=== PATIENT | male | born 1960 | race Caucasian/White ===

== ENCOUNTER 2018-03-15 07:59 | Day surgery (SDC) | payer MEDICARE ==
[2018-03-14 11:57] VITALS: BMI 41.8
--- NOTE | 2018-03-15 10:02 | RAD ---
LEFT SHOULDER 3 VIEWS: Date: 03/15/18 HISTORY: Left shoulder pain. FINDINGS/IMPRESSION: Degenerative changes are present. No fracture, dislocation, or bony destruction is identified. POS: [facility]
[2018-03-15] MEDS ORDERED: Bupivacaine PF 0.5% 30 ML VIAL ONE (10:06)
[2018-03-15] MEDS ORDERED: Betamet Acet/Betamet Na Ph 30 MG/5 ML VIAL FS SCH (10:15)
[2018-03-15] MEDS ORDERED: Bupivacaine HCl 0.5%/Epinephrine 1:200,000/PF 30 ml Vial IJ SCH (10:15)
--- NOTE | 2018-03-15 13:31 | MRI ---
MRI LEFT SHOULDER WITHOUT CONTRAST: Date: 03/15/18 HISTORY: Injury yesterday. Snover a pop. COMPARISON: Radiographs same date. FINDINGS: Biceps Tendon: The biceps tendon is attenuated at the intertrabecular groove and interstitial split tearing. There i s no normal interarticular biceps tendon appreciated aside from a stub of tendon at the supraglenoid tubercle. Labrum: There is a tear of the posterior inferior labrum. There is also loss of volume and chronic tearing th roughout the superior labrum. Rotator Cuff: There is a high grade bursal surface tear of the supraspinatus tendon from the footprint involving th e anterior 1.0 cm fibers, approximately 75% thickness. This occurs where there is a large subcortical cyst of the footprint. Moderate tendinosis of infraspinatus tendon. There is edema surrounding the s upraspinatus tendon, as well as extending back into the myotendinous junction. This may reflect an ac yurok tear. There is extensive undersurface partial tearing of the subscapularis. Soft Tissues: There are multiple ossified bodies within the subscapularis bursa. These are two definite bodies, the largest measuring 1.4 x 0.5 cm and the other measuring approximately 5.0 x 6.0 mm. Moderate subacromial/subdeltoid bursa effusion. There is a Type II acromion with lateral downsloping and bursal surface fraying about the supraspinat us and infraspinatus tendons. No significant muscle atrophy. IMPRESSION: 1. High grade 75% thickness bursal surface tear of the anterior 1.0 cm fibers of supraspinatus tendo n from the footprint occurring at a large subcortical cyst, likely from chronic interstitial delamina tion and insertion of fluid from tendinosis and delaminating tears. 2. High grade interstitial delamination of the posterior fibers of the supraspinatus tendon extendin g to the infraspinatus tendon which is moderately tendinotic. Interstitial delamination of undersurfa ce partial tearing of the posterior tendon involves approximately 50% of the tendon thickness. 3. Moderate subacromial/subdeltoid bursa effusion. 4. Multiple bodies in subscapularis bursa, largest measuring 1.5 x 0.5 cm. 5. Rupture of the biceps tendon with attenuated fibers of the intertubercular groove of the small st ub of the supraglenoid tubercle. POS: [facility]
== END 2018-03-15 12:53 | disposition home or self-care (01) ==
LOC: SDC 07:59
PROVIDERS: ATTEND Orthopaedic Surgery Hand Surgery
DX: S43.402A Unspecified sprain of left shoulder joint, initial encounter (principal); S46.212A Strain of muscle, fascia and tendon of other parts of biceps, left arm, initial encounter; G56.23 Lesion of ulnar nerve, bilateral upper limbs; G56.03 Carpal tunnel syndrome, bilateral upper limbs; M54.12 Radiculopathy, cervical region; M48.02 Spinal stenosis, cervical region; J44.9 Chronic obstructive pulmonary disease, unspecified; I10 Essential (primary) hypertension; Z79.1 Long term (current) use of non-steroidal anti-inflammatories (NSAID); Z79.84 Long term (current) use of oral hypoglycemic drugs; Z79.899 Other long term (current) drug therapy; X58.XXXA Exposure to other specified factors, initial encounter
CPT/HCPCS: 80048; 85027; 93005; 93010; J0702; S0020

== ENCOUNTER 2018-03-22 06:59 | Day surgery (SDC) | payer MEDICARE ==
[2018-03-15 16:09] VITALS: BMI 41.8
[2018-03-22] MEDS ORDERED: Midazolam HCl 2 mg/2 ml Vial ONE (07:57)
[2018-03-22] MEDS ORDERED: Fentanyl 100 MCG/2 ML VIAL ONE ×3 (07:57→11:43)
[2018-03-22] MEDS ORDERED: CEFAZOLIN 2 GM/50 ML BAG ONE (08:12)
[2018-03-22] MEDS ORDERED: Ondansetron PF 4 MG/2 ML Vial IVP PRN (09:27)
[2018-03-22] MEDS ORDERED: Zolpidem Tartrate 5 MG TAB PO PRN (09:27)
[2018-03-22] MEDS ORDERED: Ropivacaine 0.2% 550 ML 550 ML NERVE BLCK SCH (09:27)
[2018-03-22] MEDS ORDERED: Fentanyl 100 MCG/2 ML VIAL IV PRN (09:27)
[2018-03-22] MEDS ORDERED: Promethazine HCl 25 MG/ML VIAL IM PRN (09:27)
[2018-03-22] MEDS ORDERED: traMADol HCl 50 MG TAB PO PRN ×2 (09:27)
[2018-03-22] MEDS ORDERED: HYDROcodone/Acetaminophen 10/325 mg Tablet PO PRN ×2 (09:27)
[2018-03-22] MEDS ORDERED: Bupivacaine/Epinephrine 0.25% 30 ML VIAL ONE (09:49)
[2018-03-22] MEDS ORDERED: PHENYLEPHRINE-NS 100 MCG/ML 10 ML SYRINGE ONE ×3 (10:30→16:24)
[2018-03-22] MEDS ORDERED: ePHEDrine/0.9% NaCl/PF SYRINGE 50 mg/10 ml ONE ×2 (10:55→16:24)
--- NOTE | 2018-03-22 11:34 | OP ---
DATE OF PROCEDURE: 03/22/2018 PREOPERATIVE DIAGNOSES: POSTOPERATIVE DIAGNOSES: 1. Left high grade near full thickness tear, left leading footprint supraspinatus. 2. Biceps tendon rupture. POSTOPERATIVE DIAGNOSES: 1. Left near full thickness rotator cuff tear, leading supraspinatus. 2. Biceps tendon rupture. 3. Impingement. 4. Partial-thickness tear subscapularis PROCEDURE PERFORMED: 1. Left arthroscopic rotator cuff repair. 2. Subacromial decompression. . STAFF: Romeo Mejia M.D. LINK MACHINE OPERATOR: None. ANESTHESIA: Rani. The patient received general endotracheal intubation, interscalene block. ESTIMATED BLOOD LOSS: 30 mL. TOURNIQUET TIME: None. IMPLANTS: A 5.5 corkscrew and a 4.7 SwiveLock. ANTIBIOTICS: Two grams. COMPLICATIONS: None. HISTORY OF PRESENT ILLNESS: Mr. Reinoso is a 57-year-old male who presented to me after an injury on 03/14/2018 with a pop. He was set up for carpal tunnel release with Dr. Courtney. He had severe pain in his left shoulder, pain overhead with 8-9/10 pain. The patient had MRI showing a high full thickness tear with cystic change and a ruptured biceps. I discussed with the patient the risks and benefits of arthroscopic repair of his left shoulder with possible decompression, possible tenodesis. He understood the risks and benefits of the procedure to include pain, scar, bleeding, infection, damage to vital structures, decreased range of motion or strength, continued pain, failure of repair, loss of life or limb. The patient understood the risks and benefits and elected to proceed. PROCEDURE IN DETAIL: Timeout was performed designating the patient's left upper extremity as the operative site based on sight, consents and markings. After timeout, the patient's left upper extremity was prepped and draped in sterile fashion. The patient was placed in a beach chair position. Posterior working anterior working portal placed intra-articularly. I saw the ruptured biceps, I debrided some of the labrum and saw the subscapularis, which did not have a full thickness tear, but did have a partial thickness tear. The tear was debrided. I did not see any full thickness tear, I did not recognize the biceps. No full thickness cartilage defects of the humerus or glenoid were noted, no loose bodies. I moved subacromially. I could not find the definitive loose bodies that were noted. Visualization within the pouch did not find the loose bodies. I then moved subacromially to find the patient's full thickness tear and there was about a 1 cm tear. They were not within the pouch and were subscapularis, I did not attempt to develop them into the shoulder. I then moved, I debrided the rotator cuff footprint for anchor repair of the supraspinatus. I placed a lateral portal, I debrided and took down the portion of CA ligament and debrided the rotator cuff. I found a spot of the humerus, came down on top of the humerus, made a second stab incision off my lateral portal, anterolateral aspect of the humerus to place the anchor. I then passed 4 stitches and sewed them in a horizontal mattress fashion. I closed the rotator cuff, placed a second lateral row. After I sutured my anchors down took compressive, felt I had a good repair. I did my decompression release and not find loose bodies. I completed my procedure and closed with 3-0 Nylon. The patient may begin passive range of motion. I will see him back in clinic in 2 weeks. KARIME
[2018-03-22] MEDS ORDERED: Ropivacaine 0.5% HCl/PF (150 MG/30 ML VIAL) ONE (15:29)
[2018-03-22] MEDS ORDERED: Ropivacaine 0.2% HCl/PF (40 MG/20 ML VIAL) ONE (15:29)
[2018-03-22] MEDS ORDERED: Dexamethasone 20 MG/5 ML VIAL ONE (16:24)
[2018-03-22] MEDS ORDERED: Glycopyrrolate 0.2 MG/ML 5 ML SYRINGE ONE (16:24)
[2018-03-22] MEDS ORDERED: Lidocaine 1% PF 5 ML VIAL ONE (16:24)
[2018-03-22] MEDS ORDERED: PROPOFOL 200 MG/20 ML VIAL ONE (16:24)
[2018-03-22] MEDS ORDERED: Ondansetron PF 4 MG/2 ML Vial ONE (16:24)
== END 2018-03-22 13:32 | disposition home or self-care (01) ==
LOC: SDC 06:59
PROVIDERS: ATTEND Orthopaedic Surgery
PROC: 0LQ24ZZ Repair Left Shoulder Tendon, Percutaneous Endoscopic Approach (ICD-10-PCS; principal; 2018-03-22)
PROC: 0RHK44Z Insertion of Internal Fixation Device into Left Shoulder Joint, Percutaneous Endoscopic Approach (ICD-10-PCS; 2018-03-22)
PROC: 0RNK4ZZ Release Left Shoulder Joint, Percutaneous Endoscopic Approach (ICD-10-PCS; 2018-03-22)
DX: S46.012A Strain of muscle(s) and tendon(s) of the rotator cuff of left shoulder, initial encounter (principal); S46.212A Strain of muscle, fascia and tendon of other parts of biceps, left arm, initial encounter; M75.42 Impingement syndrome of left shoulder; Z87.891 Personal history of nicotine dependence; Z79.1 Long term (current) use of non-steroidal anti-inflammatories (NSAID); Z79.82 Long term (current) use of aspirin; Z79.84 Long term (current) use of oral hypoglycemic drugs; Z79.899 Other long term (current) drug therapy; X50.0XXA Overexertion from strenuous movement or load, initial encounter
CPT/HCPCS: 29826; 29827; 96374; A4306; C1713; J1100; J2001; J2250; J2405; J2704; J2795; J3010

== ENCOUNTER 2018-08-23 11:14 | Day surgery (SDC) | payer MEDICARE ==
[2018-08-22 15:03] VITALS: BMI 41.3
--- NOTE | 2018-08-23 12:47 | RAD ---
CHEST TWO VIEWS: History: Pre op. FINDINGS: The heart size is upper limits of normal. Mediastinal structures are unremarkable. The lungs are marlon r of infiltrates. There are arthritic changes of the spine. IMPRESSION: Borderline heart size. POS: [facility]
[2018-08-23 12:55] LABS: #Basophils 0.1 thou/uL (0.0-0.2); #Eosinphils 0.2 thou/uL (0.0-0.7); #Monocytes 0.6 thou/uL (0.11-0.59); #Neutrophils 3.6 thou/uL (1.40-6.50); %Basophils 1.4 % (0.0-1.0); %Eosinophils 3.6 % (0.0-10.0); %Monocytes 8.5 % (0.0-10.0); %Neutrophils 55.5 % (42.0-75.0); Hemoglobin 13.2 g/dL (14.0-18.0); Mean Corpuscular HGB CONC 32.4 g/dL (32.0-36.0); Mean Corpuscular Volume 89.5 fL (78.0-98.0); Platelet Count 232 thou/uL (130-400); RBC Distribution Width 12.4 % (11.5-14.5); Red Blood Cell (RBC) Count 4.56 mill/uL (4.70-6.10); White Blood Cell (WBC) Count 6.5 thou/uL (4.8-10.8)
[2018-08-23 13:05] LABS: RBC/HPF None Seen HPF (0-3); WBC/HPF 0-3 HPF (0-3)
[2018-08-23 13:06] LABS: Bacteria/HPF None Seen HPF (None Seen); Hyaline Casts/LPF NONE SEEN LPF (0-3 Hyaline); Squamous Epithelial 0-3 HPF (0-3)
[2018-08-23 13:25] LABS: Anion Gap 11 mmol/L (10-20); BUN (Urea Nitrogen) 17 mg/dL (8.4-25.7); Calc. Creatinine Clearance 157 mL/min (70-130); Calcium 9.6 mg/dL (7.8-10.44); Carbon Dioxide 29 mmol/L (22-29); Chloride 103 mmol/L (98-107); Estimated GFR-MDRD Greater than 90; Glucose 168 mg/dL (70-105); Potassium 4.3 mmol/L (3.5-5.1); Sodium 139 mmol/L (136-145)
[2018-08-23] MEDS ORDERED: Sodium Chloride 0.9% 0 ML ONE (14:47)
[2018-08-23] MEDS ORDERED: Bacitracin Zinc Ointment 30 gm TUBE ONE (14:47)
[2018-08-23] MEDS ORDERED: SUGAMMADEX SODIUM 200 MG/2 ML VIAL ONE (14:58)
[2018-08-23] MEDS ORDERED: Fentanyl 100 MCG/2 ML VIAL ONE (14:58)
[2018-08-23] MEDS ORDERED: PROPOFOL 200 MG/20 ML VIAL ONE (15:28)
[2018-08-23] MEDS ORDERED: Ondansetron PF 4 MG/2 ML Vial ONE (15:28)
[2018-08-23] MEDS ORDERED: Ketorolac Tromethamine 30 MG/ML VIAL ONE (15:28)
[2018-08-23] MEDS ORDERED: ePHEDrine 50 MG/ML VIAL ONE (15:28)
[2018-08-23] MEDS ORDERED: Lidocaine 1% PF 5 ML VIAL ONE (15:28)
[2018-08-23] MEDS ORDERED: PHENYLEPHRINE-NS 100 MCG/ML 10 ML SYRINGE ONE (15:28)
[2018-08-23] MEDS ORDERED: Succinylcholine Chloride 20 MG/ML 10 ml SYRINGE FS ONE (15:28)
[2018-08-23] MEDS ORDERED: Bupivacaine PF 0.5% 30 ML VIAL ONE ×2 (15:39→16:07)
[2018-08-23] MEDS ORDERED: Thrombin 5000 UNITS/5 ML VIAL ONE ×2 (15:47→16:09)
--- NOTE | 2018-08-23 23:31 | OP ---
DATE OF PROCEDURE: 08/23/2018 PREOPERATIVE DIAGNOSIS: Left large olecranon bursitis with previous ulnar nerve dysfunction. POSTOPERATIVE DIAGNOSIS: Left large olecranon bursitis with previous ulnar nerve dysfunction. PROCEDURE PERFORMED: Excision of radical olecranon bursa. Removal of 8.5 x 5.0 cm olecranon mass with straw colored hemorrhagic blood inside with almost a 4 mm thick bursa cavity at some points. BLOOD LOSS: 20 mL. TOURNIQUET TIME: 20 minutes. INDICATION: Pain in olecranon bursal region with ulnar nerve neuropathy, scheduled for ulnar nerve procedure in the next 6 weeks, but felt this was painful. DESCRIPTION OF PROCEDURE: After successful general LMA technique, the limb prepped and draped. The patient then had the time-out accomplished, we had placed the sterile tourniquet on the arm and the limb was exsanguinated and then tourniquet inflated to 250 mmHg pressure. It was well padded. We then placed the arm over his head with appropriate pack of towels to stabilize it, began a zigzag incision that was midline and zagged medially slightly by three 3-4 mm to avoid the olecranon tip and went back to the midline distally. This was carried through skin, subcutaneous tissue to identify the mass and then began to dissect distally and radially and distally ulnarly in a 360 degree arc until we came to the area over the triceps. We spared the triceps tendon and all excision of the underlying bursal edema. The patient then had the mass completely removed, protecting the ulnar nerves, that could be palpated. We then placed thrombin-soaked Gelfoam immediately on the wound and began to close. Hemostasis was excellent. We changed out the thrombin-soaked Gelfoam and closed the wound with subcutaneous running 3-0 Monocryl and the skin with 3-0 nylon interrupted mattress pattern. The patient left the operating room after this, put out in a long-arm splint and pink digits. No evidence of complication. Job ID: [id number]
== END 2018-08-23 18:30 | disposition home or self-care (01) ==
LOC: SDC 11:14
PROVIDERS: ATTEND Orthopaedic Surgery Hand Surgery
PROC: 0MB40ZZ Excision of Left Elbow Bursa and Ligament, Open Approach (ICD-10-PCS; principal; 2018-08-23)
DX: M70.22 Olecranon bursitis, left elbow (principal); G56.23 Lesion of ulnar nerve, bilateral upper limbs; G56.03 Carpal tunnel syndrome, bilateral upper limbs; M25.839 Other specified joint disorders, unspecified wrist; E11.9 Type 2 diabetes mellitus without complications; Z87.891 Personal history of nicotine dependence; Z79.84 Long term (current) use of oral hypoglycemic drugs; Z79.1 Long term (current) use of non-steroidal anti-inflammatories (NSAID); Z79.899 Other long term (current) drug therapy; Z98.890 Other specified postprocedural states
CPT/HCPCS: 36415; 71046; 80048; 81015; 85025; 88304; 93005; 93010; J0690; J1885; J2001; J2405; J2704; J3010; J3490; S0020

== ENCOUNTER 2018-09-12 14:44 | Inpatient (IN) | payer MEDICARE ==
[~2018-09-12 14:44] MED LIST: Ketorolac Tromethamine 30 MG/ML VIAL ONE; Lidocaine 1% PF 5 ML VIAL ONE; Ondansetron PF 4 MG/2 ML Vial ONE; PHENYLEPHRINE-NS 100 MCG/ML 10 ML SYRINGE ONE; PROPOFOL 200 MG/20 ML VIAL ONE; ePHEDrine 50 MG/ML VIAL ONE
[2018-09-12 17:03] LABS: #Basophils 0.1 thou/uL (0.0-0.2); #Eosinphils 0.2 thou/uL (0.0-0.7); #Lymphocytes 1.4 thou/uL (1.20-3.40); #Monocytes 0.7 thou/uL (0.11-0.59); #Neutrophils 3.9 thou/uL (1.40-6.50); %Basophils 1.2 % (0.0-1.0); %Eosinophils 3.5 % (0.0-10.0); %Monocytes 10.6 % (0.0-10.0); %Neutrophils 62.8 % (42.0-75.0); Hemoglobin 11.8 g/dL (14.0-18.0); Mean Corpuscular HGB CONC 33.3 g/dL (32.0-36.0); Mean Corpuscular Hemoglobin 29.9 pg (27.0-31.0); Mean Corpuscular Volume 89.7 fL (78.0-98.0); Mean Platelet Volume 7.7 fL (7.4-10.4); Platelet Count 236 thou/uL (130-400); RBC Distribution Width 12.3 % (11.5-14.5); Red Blood Cell (RBC) Count 3.94 mill/uL (4.70-6.10); White Blood Cell (WBC) Count 6.2 thou/uL (4.8-10.8)
[2018-09-12] MEDS ORDERED: Bacitracin Zinc Ointment 30 gm TUBE ONE (19:49)
[2018-09-12] MEDS ORDERED: Sodium Chloride 0.9% 30 ML ONE (19:49)
[2018-09-12] MEDS ORDERED: Bupivacaine PF 0.5% 30 ML VIAL ONE (19:49)
[2018-09-12] MEDS ORDERED: Sodium Chloride 0.9% 20 ML ONE (19:53)
[2018-09-12] MEDS ORDERED: Fentanyl 100 MCG/2 ML VIAL ONE (20:06)
[2018-09-12] MEDS ORDERED: Promethazine HCl 25 MG/ML VIAL SLOW IVP PRN (21:35)
[2018-09-12] MEDS ORDERED: PACU-Morphine 4MG/ML VIAL SLOW IVP PRN (21:35)
[2018-09-12] MEDS ORDERED: Promethazine HCl 25 MG/ML VIAL IM PRN ×2 (21:35→22:00)
[2018-09-12] MEDS ORDERED: Ondansetron HCl/PF 4 MG/2 ML Vial IVP PRN (21:35)
[2018-09-12] MEDS ORDERED: HYDROmorphone 2 MG/ML VIAL SLOW IVP PRN (21:35)
[2018-09-12] MEDS ORDERED: Morphine 4 MG/ML VIAL SLOW IVP PRN (22:00)
[2018-09-12] MEDS ORDERED: traMADol HCl 50 MG TAB PO PRN (22:00)
[2018-09-12] MEDS ORDERED: Morphine 2 MG/ML SYRINGE IVP PRN (22:00)
[2018-09-12] MEDS ORDERED: Communication Order-Pharmacy FS SCH (22:00)
[2018-09-12] MEDS ORDERED: Fentanyl 100 MCG/2 ML VIAL SLOW IVP PRN (22:00)
[2018-09-12] MEDS ORDERED: Meperidine HCl/PF 25 MG/ML VIAL IM PRN (22:10)
[2018-09-12 23:08] VITALS: BMI 42.5
[2018-09-12] MEDS ORDERED: Albuterol Sulfate 2.5 mg/3 ml Neb NEB PRN (23:55)
[2018-09-12] MEDS ORDERED: Polyethylene Glycol 3350 17 GM Packet PO PRN (23:56)
[2018-09-13] MEDS ORDERED: Dextrose 5% in Water 1,000 ML IV PRN (00:07)
[2018-09-13] MEDS ORDERED: Dextrose 50% Abboject 50 ML SYRINGE IVP PRN (00:07)
[2018-09-13] MEDS: Aspirin 81 mg Enteric Coated Tablet PO SCH ×2 (00:40→08:38)
[2018-09-13] MEDS: Insulin Regular 300 UNITS/3 ML VIAL SC PRN ×5 (00:41→21:09)
[2018-09-13] MEDS: Vancomycin HCl 1.5 GM in Sodium Chloride 0.9% 250 ML 300 ML IVPB SCH ×2 (01:43→14:02)
[2018-09-13] MEDS: HYDROcodone/Acetaminophen 5/325 mg Tablet PO PRN (05:14)
[2018-09-13] MEDS: metFORMIN 500 MG TAB PO SCH (08:37)
[2018-09-13] MEDS: Docusate 100 MG CAP PO SCH (08:37)
[2018-09-13] MEDS: Simethicone Chewable 80 MG TAB PO SCH (08:38)
[2018-09-13] MEDS: Furosemide 40 MG TAB PO SCH (08:38)
[2018-09-13] MEDS: Pravastatin Sodium 20 MG TAB PO SCH (08:42)
[2018-09-13] MEDS ORDERED: Aspirin 81 mg Enteric Coated Tablet PO SCH (09:00)
[2018-09-13] MEDS ORDERED: TETANUS AND DIPHTHERIA TOX/PF 0.5 ML DISP.SYRIN IM SCH (09:00)
[2018-09-13] MEDS: HYDROcodone/Acetaminophen 10/325 mg Tablet PO PRN ×3 (13:01→22:06)
[2018-09-13] MEDS ORDERED: Sodium Chloride 0.9% 10 ML ONE (15:21)
[2018-09-13] MEDS: Meloxicam 15 MG TAB PO SCH (21:04)
[2018-09-13] MEDS: Amlodipine 10 MG TAB PO SCH (21:04)
[2018-09-13] MEDS: Multivit, Therapeutic 1 TAB PO SCH (21:05)
[2018-09-14] MEDS: Vancomycin HCl 1.5 GM in Sodium Chloride 0.9% 250 ML 300 ML IVPB SCH ×3 (03:13→21:10)
[2018-09-14] MEDS: Insulin Regular 300 UNITS/3 ML VIAL SC PRN ×4 (06:16→21:04)
[2018-09-14] MEDS: metFORMIN 500 MG TAB PO SCH (08:19)
[2018-09-14] MEDS: Simethicone Chewable 80 MG TAB PO SCH (08:20)
[2018-09-14] MEDS: Docusate 100 MG CAP PO SCH (08:20)
[2018-09-14] MEDS: Aspirin 81 mg Enteric Coated Tablet PO SCH (08:20)
[2018-09-14] MEDS: Furosemide 40 MG TAB PO SCH (08:22)
[2018-09-14] MEDS: HYDROcodone/Acetaminophen 10/325 mg Tablet PO PRN ×4 (08:48→20:53)
[2018-09-14] MEDS: Pravastatin Sodium 20 MG TAB PO SCH (08:51)
[2018-09-14 13:42] LABS: Vancomycin, Trough 9.6 ug/mL
[2018-09-14] MEDS: Amlodipine 10 MG TAB PO SCH (20:46)
[2018-09-14] MEDS: Meloxicam 15 MG TAB PO SCH (20:46)
[2018-09-14] MEDS: Multivit, Therapeutic 1 TAB PO SCH (20:46)
[2018-09-15] MEDS: Insulin Regular 300 UNITS/3 ML VIAL SC PRN ×3 (06:01→22:18)
[2018-09-15] MEDS: Vancomycin HCl 1.5 GM in Sodium Chloride 0.9% 250 ML 300 ML IVPB SCH ×3 (06:02→22:08)
[2018-09-15] MEDS: HYDROcodone/Acetaminophen 10/325 mg Tablet PO PRN ×2 (06:05→20:25)
[2018-09-15] MEDS: Aspirin 81 mg Enteric Coated Tablet PO SCH (08:44)
[2018-09-15] MEDS: Furosemide 40 MG TAB PO SCH (08:44)
[2018-09-15] MEDS: metFORMIN 500 MG TAB PO SCH (08:44)
[2018-09-15] MEDS: Simethicone Chewable 80 MG TAB PO SCH (08:44)
[2018-09-15] MEDS: Docusate 100 MG CAP PO SCH (08:44)
[2018-09-15] MEDS: Pravastatin Sodium 20 MG TAB PO SCH (08:45)
[2018-09-15] MEDS: HYDROcodone/Acetaminophen 5/325 mg Tablet PO PRN (13:41)
[2018-09-15 14:06] LABS: Vancomycin, Trough 16.8 ug/mL
[2018-09-15] MEDS: Amlodipine 10 MG TAB PO SCH (20:24)
[2018-09-15] MEDS: Multivit, Therapeutic 1 TAB PO SCH (20:24)
[2018-09-15] MEDS: Meloxicam 15 MG TAB PO SCH (20:24)
--- NOTE | 2018-09-15 20:30 | CON ---
DATE OF CONSULTATION: 09/15/2018 REASON FOR CONSULTATION: A 58-year-old with olecranon bursitis. HISTORY OF PRESENT ILLNESS: Mr. Reinoso has type 2 diabetes and back and shoulder surgeries as well as olecranon bursitis of the left elbow. This has failed conservative management. The patient was admitted and had a surgical debridement by Dr. Courtney. The operative report was reviewed. There was described mass which was completely removed. The triceps tendon was spared. No comment is made regarding the possibility of bone involvement. Imaging study includes a chest x-ray, but no imaging study of the elbow per se. Chest x-ray showed borderline heart size. Currently, Mr. Reinoso is sitting by the bedside. He denies any headaches. He has chronically blind right eye. No sore throat, odynophagia, or dysphagia. No dyspnea or chest pain. No abdominal pain. He is voiding in the urinal. He has a peripheral IV access. Negative pressure dressing left elbow. PAST MEDICAL HISTORY: 1. Type 2 diabetes. 2. Shoulder and back surgery. ALLERGIES: NONE. MEDICATION LIST: 1. [place]. 2. Norvasc. 3. Ecotrin. 4. Sublimaze. 5. Colace. 6. Lasix. 7. Insulin. 8. Mobic. 9. Glucophage. 10. MiraLax. 11. Zofran. 12. Pravachol. 13. Phenergan. 14. Vancomycin. 15. Tramadol. FAMILY HISTORY: Noncontributory. Lives in [place] with I think a friend and he is retired for the past 4 years. PHYSICAL EXAMINATION: VITAL SIGNS: T-max 98.5, blood pressure 150/73, pulse 75, respirations 20, O2 saturation 95%. SKI: Shows the area of the bursa resection which has fresh wound base with serosanguineous drainage and not much in terms of erythema surrounding the area. HEENT: No lymphadenopathy. The patient has opacified intraocular medial right eye. Left pupil is reactive. Sclera white. Conjunctivae normal. Nasal passages patent. Ear exam normal. Oral cavity with only a few remaining teeth, quite a bit of decay. Oral mucosa is normal. NECK: Supple. No jugular venous distention. No carotid bruits. No thyromegaly. LUNGS: Symmetric clear breath sounds. HEART: S1 and S2. Regular rate. No S3 or S4. ABDOMEN: Soft. Not distended or tender. No ascites. No bladder distention. EXTREMITIES: No joint inflammatory activity outside the area of involvement. Pulses 1+ in dorsalis pedis. Moves extremities equally. Trace edema. NEURO: Awake, oriented, follows commands. Speech is normal. Recollection is normal. LABORATORY DATA: White cell count 6.2, hemoglobin 11.8, platelets 236 with a normal differential. Prior chemistry results, creatinine 0.75. Urinalysis was normal. Microbiology with methicillin-sensitive Staph aureus, susceptibility to beta-lactams, rifampin, tetracycline, Bactrim, vancomycin. ASSESSMENT: Type 2 diabetes with olecranon bursitis, status post bursectomy. It did not appear that there was involvement of the olecranon process itself. Imaging study was not completed in view of the chronicity of lesion might be interesting to rule out bony abnormalities. I believe in view of the complete resection, he is eligible for oral Keflex plus rifampin. Discharge planning, treat for 3-4 weeks. Follow up in the clinic. Job ID: [id number]
[2018-09-16] MEDS: Vancomycin HCl 1.5 GM in Sodium Chloride 0.9% 250 ML 300 ML IVPB SCH (06:29)
[2018-09-16] MEDS: Insulin Regular 300 UNITS/3 ML VIAL SC PRN (06:37)
[2018-09-16] MEDS: metFORMIN 500 MG TAB PO SCH (08:12)
[2018-09-16] MEDS: HYDROcodone/Acetaminophen 10/325 mg Tablet PO PRN (08:16)
[2018-09-16] MEDS: Furosemide 40 MG TAB PO SCH (08:16)
[2018-09-16] MEDS: Aspirin 81 mg Enteric Coated Tablet PO SCH (08:16)
[2018-09-16] MEDS: Docusate 100 MG CAP PO SCH (08:16)
[2018-09-16] MEDS: Simethicone Chewable 80 MG TAB PO SCH (08:16)
[2018-09-16] MEDS: Pravastatin Sodium 20 MG TAB PO SCH (08:57)
[2018-09-16 12:11] VITALS: BP 140/72; TEMP 98.3
--- NOTE | 2018-09-19 08:33 | OP ---
DATE OF PROCEDURE: 09/12/2018 PREOPERATIVE DIAGNOSES: Abscess with hematoma, left olecranon bursa. POSTOPERATIVE DIAGNOSIS: Hematoma with surrounding abscess, left olecranon bursa. PROCEDURES PERFORMED: 1. Incision and drainage, olecranon bursa abscess. 2. Evacuation of hematoma, left olecranon bursa. 3. 10 x 4 cm VAC application after obtaining hemostasis. FINDING: Left olecranon bursa remnant with abscess cavity and hematoma. ESTIMATED BLOOD LOSS: 100 mL. TOURNIQUET TIME: 8 minutes. FINDINGS: Abscess with associated cavity with hematoma in the middle. INDICATIONS: The patient returns to the office today to have his olecranon bursa drained after we suspected hematoma because he had a small hematoma with serosanguineous drainage before. Sutures were placed medially in his left olecranon bursa under sterile prep conditions today. We noticed gross purulence. Thus, we felt he now developed a hematoma with abscess. DESCRIPTION OF PROCEDURE: After successful general endotracheal anesthesia, the limb was prepped and draped. A sterile tourniquet was applied and the limb was exsanguinated. This was 250 mmHg pressure. We followed his previous incision that was then carried down through skin and subcutaneous tissue medially. There was gross purulence escape. We saw a remnant of the olecranon bursa, which was removed with tenotomy scissors. We drained the abscess, irrigated with 5000 mL of normal saline with antibiotics inside and deflated the tourniquet after 8 minutes, obtained hemostasis. This was done with packing, two Gel-Foam, two thrombus and one in each Gel-Foam we used electrocautery and then placed cold normal saline and two ABDs inside. 10 minutes after this, we removed and we had excellent hemostasis. We then placed the VAC dressing with the appropriate ortiz sponge cut out, obtained a seal, and then patient left the operating room without evidence of anesthetic or operative complication. Job ID: [id number]
== END 2018-09-16 13:05 | disposition home or self-care (01) | DRG 858 ==
LOC: SDC 14:44 → 3SE 21:53
PROVIDERS: ADMIT Orthopaedic Surgery Hand Surgery; ATTEND Orthopaedic Surgery Hand Surgery
PROC: 0M940ZZ Drainage of Left Elbow Bursa and Ligament, Open Approach (ICD-10-PCS; principal; 2018-09-12)
PROC: 0MC Bursae and Ligaments, Extirpation (ICD-10-PCS; 2018-09-12)
DX: T81.49XA Infection following a procedure, other surgical site, initial encounter (principal); M70.22 Olecranon bursitis, left elbow; E11.9 Type 2 diabetes mellitus without complications; Z79.4 Long term (current) use of insulin; H54.61 Unqualified visual loss, right eye, normal vision left eye; Z79.82 Long term (current) use of aspirin; Z79.899 Other long term (current) drug therapy; Z87.891 Personal history of nicotine dependence
CPT/HCPCS: 36415; 36416; 80202; 85025; 85652; 87070; 87077; 87102; 87186; 87205; 94660; J1815; J1885; J2001; J2270; J2405; J2704; J3010; J3370; J3490; J7050; S0020

== ENCOUNTER 2018-09-19 15:20 | Day surgery (SDC) | payer MEDICARE ==
[~2018-09-19 15:20] MED LIST changes: +Metoclopramide HCl 10 MG/2 ML VIAL ONE; -ePHEDrine 50 MG/ML VIAL ONE
[2018-09-19] MEDS ORDERED: Sodium Chloride 0.9% 30 ML ONE (19:43)
[2018-09-19] MEDS ORDERED: Bupivacaine PF 0.5% 30 ML VIAL ONE (19:43)
[2018-09-19] MEDS ORDERED: Bacitracin Zinc Ointment 30 gm TUBE ONE (19:43)
[2018-09-19] MEDS ORDERED: Fentanyl 100 MCG/2 ML VIAL ONE (20:23)
[2018-09-19] MEDS ORDERED: Thrombin 5000 UNITS/5 ML VIAL ONE (21:19)
[2018-09-19] MEDS ORDERED: Ketorolac Tromethamine 30 MG/ML VIAL ONE (22:34)
--- NOTE | 2018-09-20 08:28 | OP ---
DATE OF PROCEDURE: 09/19/2018 PREOPERATIVE DIAGNOSIS: Left olecranon 10 cm long by 2-2.5 cm wide at the apex wound. FINDINGS: 1. No gross infection. 2. No hematoma. PROCEDURES PERFORMED: 1. Debridement of wound with following techniques: a. Excisional technique. b. Instrumentation was curette, multiple sizes. 3 L normal saline and Pulsavac pressure with Bacitracin 41624 units/L; 11 blade knife, and Teller blade; tenotomy scissors and Adson's. Findings, no gross infection down to, but not including the fascia, [id number]. 2. Closure wound, complex multiple layers, 37700, 10 cm wound. INDICATIONS: The patient is now 1 week after drainage of a hematoma that was infected, remained in the hospital until 72 hours ago, but wound is not quite ready for closure, so a VAC dressing was used. Infection was drained on postoperative day #1, had a VAC at home and was already on antibiotics. DESCRIPTION OF PROCEDURE: After successful general LMA technique, the limb was prepped and draped. The patient then had the tourniquet applied high in the arm before prep and drape and we did not exsanguinate the limb. We then performed debridement 365 degrees circumferentially, undermined the skin and noticed that there was no gross infection or hematoma. We then finished the irrigation, placed thrombin-soaked Gelfoam on the wound for 5 minutes, then removed the Gel-Foam. There was no bleeding, so we closed the wound in 2 layers with #2 Monocryl. Then, once the deep layer was closed of the dermis, the epidermis was approximated with interrupted vertical mattress closure with excellent wound apposition. No gap formation and 120 degrees of flexion all the way to 0 degrees passively. We then injected the wound with 30 mL of 0.5% Marcaine, sent the patient out of the operating room in a bulky dressing with Vincent wrap. No evidence of anesthetic or operative complication. Job ID: [id number]
== END 2018-09-19 23:00 | disposition home or self-care (01) ==
LOC: SDC 15:20
PROVIDERS: ATTEND Orthopaedic Surgery Hand Surgery
PROC: 0JBH0ZZ Excision of Left Lower Arm Subcutaneous Tissue and Fascia, Open Approach (ICD-10-PCS; principal; 2018-09-19)
DX: S51.002A Unspecified open wound of left elbow, initial encounter (principal); Z98.890 Other specified postprocedural states
CPT/HCPCS: 36416; J0131; J1885; J2001; J2405; J2704; J2765; J3010; J3370; J3490; S0020

== ENCOUNTER 2018-11-15 16:33 | Day surgery (SDC) | payer MEDICARE ==
[~2018-11-15 16:33] MED LIST changes: +Dexamethasone 20 MG/5 ML VIAL ONE; -Metoclopramide HCl 10 MG/2 ML VIAL ONE; +ePHEDrine 50 MG/ML VIAL ONE
[2018-11-15 17:28] LABS: #Basophils 0.1 thou/uL (0.0-0.2); #Eosinphils 0.2 thou/uL (0.0-0.7); #Lymphocytes 1.9 thou/uL (1.20-3.40); #Monocytes 0.6 thou/uL (0.11-0.59); #Neutrophils 5.3 thou/uL (1.40-6.50); %Basophils 0.9 % (0.0-1.0); %Eosinophils 2.2 % (0.0-10.0); %Monocytes 7.1 % (0.0-10.0); %Neutrophils 65.8 % (42.0-75.0); Hemoglobin 13.8 g/dL (14.0-18.0); Mean Corpuscular HGB CONC 32.6 g/dL (32.0-36.0); Mean Corpuscular Hemoglobin 28.5 pg (27.0-31.0); Mean Corpuscular Volume 87.4 fL (78.0-98.0); Mean Platelet Volume 7.6 fL (7.4-10.4); Platelet Count 279 thou/uL (130-400); RBC Distribution Width 12.5 % (11.5-14.5); Red Blood Cell (RBC) Count 4.82 mill/uL (4.70-6.10); White Blood Cell (WBC) Count 8.1 thou/uL (4.8-10.8)
[2018-11-15 17:55] LABS: Anion Gap 13 mmol/L (10-20); BUN (Urea Nitrogen) 19 mg/dL (8.4-25.7); Calc. Creatinine Clearance 0 mL/min (70-130); Calcium 10.6 mg/dL (7.8-10.44); Carbon Dioxide 28 mmol/L (22-29); Chloride 103 mmol/L (98-107); Estimated GFR-MDRD Greater than 90; Glucose 147 mg/dL (70-105); Potassium 3.5 mmol/L (3.5-5.1); Sodium 140 mmol/L (136-145)
[2018-11-15] MEDS ORDERED: Thrombin 5000 UNITS/5 ML VIAL ONE (20:50)
[2018-11-15] MEDS ORDERED: Bacitracin Zinc Ointment 30 gm TUBE ONE (20:50)
[2018-11-15] MEDS ORDERED: Sodium Chloride 0.9% 20 ML ONE (20:51)
[2018-11-15] MEDS ORDERED: Fentanyl 100 MCG/2 ML VIAL ONE (20:54)
[2018-11-15] MEDS ORDERED: Bupivacaine PF 0.5% 30 ML VIAL ONE (21:43)
--- NOTE | 2018-11-16 10:39 | OP ---
DATE OF PROCEDURE: 11/15/2018 PREOPERATIVE DIAGNOSES: Elbow open wound, approximately 7 cm. FINDINGS: 1. No gross infection. 2. Open wound, 7 cm long x 6 mm wide. PROCEDURES PERFORMED: 1. Debridement of wound. 2. Closure of 7 cm wound. COMPLICATIONS: None. TOURNIQUET TIME: 20 minutes, wound closure of multiple layers. No gross infection on final. DESCRIPTION OF PROCEDURE: After successful general LMA technique, the limb was prepped and draped. We found the olecranon wound, exsanguinated the limb after prepping and draping, inflated tourniquet to 250 mmHg pressure and immediately began to separate the wound edges. We debrided the wound edges using a combination of [place] blade, 11 blade knife, and pickups. Excision technique was used as we removed the wound edges, 1 mm to [address] around. Then we undermined the previous flap and cavity, and closed this in two layers with 2-0 Monocryl undyed suture and a 3-0 nylon. We injected the area with 10 mL of 0.5% Marcaine, placed bacitracin, Adaptic, 4x4, Kerlix, and then Vincent wrap from the mid forearm all the way to the wrist area. No splint was applied. Job ID: [id number]
== END 2018-11-15 23:25 | disposition home or self-care (01) ==
LOC: SDC 16:33
PROVIDERS: ATTEND Orthopaedic Surgery Hand Surgery
PROC: 0JQH0ZZ Repair Left Lower Arm Subcutaneous Tissue and Fascia, Open Approach (ICD-10-PCS; principal; 2018-11-15)
DX: T81.31XA Disruption of external operation (surgical) wound, not elsewhere classified, initial encounter (principal); M70.22 Olecranon bursitis, left elbow; E11.9 Type 2 diabetes mellitus without complications; Z87.891 Personal history of nicotine dependence; Z79.1 Long term (current) use of non-steroidal anti-inflammatories (NSAID); Z79.82 Long term (current) use of aspirin; Z79.84 Long term (current) use of oral hypoglycemic drugs; Z79.899 Other long term (current) drug therapy; Z98.890 Other specified postprocedural states; W19.XXXA Unspecified fall, initial encounter
CPT/HCPCS: 36415; 80048; 85025; J0131; J0690; J1100; J1885; J2001; J2405; J2704; J3010; J3490; S0020

== ENCOUNTER 2023-11-04 14:21 | Outpatient (CLI) | payer MEDICARE | END 2023-11-04 14:22 | disposition home or self-care (01) | LOC: BICMRI 14:21 | PROVIDERS: ATTEND Nurse Practitioner Family | DX: G89.4 Chronic pain syndrome (principal); M79.89 Other specified soft tissue disorders; M48.04 Spinal stenosis, thoracic region; M25.78 Osteophyte, vertebrae; M40.294 Other kyphosis, thoracic region | CPT/HCPCS: 70210; 72146 ==